=== PATIENT | male | born 1990 | race Caucasian/White ===

== ENCOUNTER 2022-12-24 13:46 | Emergency (ER) | payer OTHER ==
[~2022-12-24] VITALS: Ht 182.9 cm; Wt 83.9 kg
[~2022-12-24 13:46] MED LIST: IBUP600 PO
[2022-12-24 13:52] VITALS: BP 123/77
[2022-12-24 14:55] LABS: Source, Urine Clean Catch
[2022-12-24 15:11] LABS: Appearance, Urine Clear (Clear); Bilirubin, Urine Neg (Neg); Blood, Urine Neg (Neg); Color, Urine Yellow (P-Yellow); Glucose Qualitative, Urine Neg (Neg); Ketones, Urine Neg (Neg); Leukocyte Esterase, Urine Neg (Neg); Nitrite, Urine Neg (Neg); Protein, Urine Neg (Neg); Urobilinogen, Urine NORM (Normal)
== END 2022-12-24 16:33 | disposition home or self-care (01) ==
LOC: ER 13:46
PROVIDERS: Emergency Medicine
DX: N50.811 Right testicular pain (principal); Z88.2 Allergy status to sulfonamides
CPT/HCPCS: 76870; 81003; 99284-25